=== PATIENT | female | born 1990 | race Caucasian/White ===

== ENCOUNTER → 2021-06-30 | Outpatient (CLI) | payer OTHER ==
--- NOTE | 2021-06-30 16:51 | CT ---
EXAMINATION TYPE: CT brain wo con DATE OF EXAM: 06/30/2021 COMPARISON: None. HISTORY: SYNCOPE, FAINTING SPELL CT DLP: 1147 mGycm. Automated Exposure Control for Dose Reduction was Utilized. TECHNIQUE: CT scan of the head is performed without contrast. FINDINGS: There is no acute intracranial hemorrhage, mass effect, or midline shift identified. The ventricles and sulci are within normal limits in size. Grajeda-white matter differentiation is maintai lexi. The globes are intact and the visualized sinuses are clear. No suspicious opacification of masto id air cells. IMPRESSION: Unremarkable study.
== END | disposition home or self-care (01) ==
LOC: RADCTMAIN 16:13
PROVIDERS: ATTEND Internal Medicine
DX: R55 Syncope and collapse (principal)
CPT/HCPCS: 70450